=== PATIENT | male | born 1960 | race Caucasian/White ===

== ENCOUNTER 2021-01-15 15:23 | Outpatient (CLI) | payer OTHER ==
--- NOTE | 2021-01-16 09:34 | XRAY Report ---
PROCEDURE: Cervical Spine w/Flex/Ext INDICATIONS: CERVICALGIA TECHNIQUE: 6 views of the cervical spine were acquired. COMPARISON: None. FINDINGS: Bones: No fractures or dislocations to the C7-T1 level. No suspicious bony lesions. Straightening o f normal cervical lordosis is seen. Degenerative endplate changes are noted at C4-5, C5-6 and C6-7 le vels. There is slightly decreased range of motion between flexion and extension, with preserved cervi eliseo spine alignment. Soft tissues: Prevertebral soft tissues are normal in thickness. IMPRESSION: 1. Mild degenerative disc disease in mid to lower cervical spine. No acute fracture or dislocation. S lightly decreased range of motion on lateral flexion and extension views with preserved cervical spin e alignment. Reviewed by: Elkin Webster MD on 01/16/2021 9:33 AM PDT Approved by: Elkin Webster MD on 01/16/2021 9:33 AM PDT Station ID: [id number]
== END 2021-01-15 23:59 | disposition home or self-care (01) ==
LOC: DI.N 15:23
PROVIDERS: ATTEND Neurological Surgery
DX: Z01.818 Encounter for other preprocedural examination (principal); M50.321 Other cervical disc degeneration at C4-C5 level

== ENCOUNTER 2021-01-16 06:57 | Outpatient (CLI) | payer OTHER | END 2021-01-16 06:58 | disposition home or self-care (01) | LOC: LAB.N 06:57 | PROVIDERS: ATTEND Neurological Surgery | DX: Z01.812 Encounter for preprocedural laboratory examination (principal); Z53.9 Procedure and treatment not carried out, unspecified reason ==

== ENCOUNTER 2021-01-16 11:47 | Outpatient (CLI) | payer OTHER | END 2021-01-16 11:48 | disposition home or self-care (01) | LOC: LAB 11:47 | PROVIDERS: ATTEND Neurological Surgery | DX: Z01.812 Encounter for preprocedural laboratory examination (principal); Z20.822 Contact with and (suspected) exposure to COVID-19 ==

== ENCOUNTER 2021-10-07 09:41 | Outpatient (CLI) | payer OTHER | END 2021-10-07 09:42 | disposition home or self-care (01) | LOC: LAB 09:41 | PROVIDERS: ATTEND Ophthalmology | DX: Z01.812 Encounter for preprocedural laboratory examination (principal); H25.11 Age-related nuclear cataract, right eye; Z20.822 Contact with and (suspected) exposure to COVID-19 ==

== ENCOUNTER 2021-10-08 10:07 | Day surgery (SDC) | payer OTHER ==
[~2021-10-08 10:07] MED LIST: CYCLOPENTOLATE 1% OPHTH DROPS 2 ML ONE; KETOROLAC 0.45% OPHTH DROPS ONE; PHENYLEPHRINE 2.5% OPHTH 2 ML DROPS ONE; PROPARACAINE 0.5% OPHTH DROPS 15 ML ONE
[2021-10-08] MEDS ORDERED: LACTATED RINGERS 1,000 ML IV ONE (10:21)
--- NOTE | 2021-10-08 11:30 | ANESTHESIA ---
Pre-Anesthesia VS, & Labs - Diagnosis right eye cataract - Procedure right CATIOL Vital Signs: Temp Pulse Resp BP Pulse Ox 36.5 C 72 18 124/80 97 10/08/21 10:21 10/08/21 10:21 10/08/21 10:21 10/08/21 10:21 10/08/21 10:21 Height: 6 ft 2 in Weight (kg): 111 kg Body Mass Index: 31.4 BMI Classification: Obese - NPO >8 hours - Lab Results Lab results reviewed: Yes Home Medications and Allergies Home Medications: Ambulatory Orders Divalproex Sodium [Depakote ER] 1,500 mg PO DAILY 09/30/21 Gabapentin [Neurontin] 1,200 mg PO TID 09/30/21 Lisinopril [Zestril] 10 mg PO DAILY 09/30/21 Pantoprazole [Protonix] 40 mg PO DAILY 09/30/21 Prazosin HCl [Minipress] 5 mg PO DAILY 09/30/21 Trazodone HCl 300 mg PO DAILY 09/30/21 Venlafaxine ER [Effexor ER] 75 mg PO DAILY 09/30/21 buPROPion [Wellbutrin Xl] 150 mg PO DAILY 09/30/21 Divalproex Sodium [Depakote ER] 1,500 mg PO DAILY 09/30/21 Gabapentin [Neurontin] 1,200 mg PO TID 09/30/21 Lisinopril [Zestril] 10 mg PO DAILY 09/30/21 Pantoprazole [Protonix] 40 mg PO DAILY 09/30/21 Prazosin HCl [Minipress] 5 mg PO DAILY 09/30/21 Trazodone HCl 300 mg PO DAILY 09/30/21 Venlafaxine ER [Effexor ER] 75 mg PO DAILY 09/30/21 buPROPion [Wellbutrin Xl] 150 mg PO DAILY 09/30/21 Allergies/Adverse Reactions: Allergies Allergy/AdvReac Type Severity Reaction Status Date / Time morphine Allergy Itching Verified 09/30/21 10:20 Anes History & Medical History - Anesthetic History Anesthesia Complications: reports: No previous complications Family history of Anesthesia Complications: Denies Family history of Malignant Hyperthermia: Denies - Medical History Cardiovascular: reports: Hypertension Pulmonary: reports: Pneumonia Gastrointestinal: reports: GERD Urinary: reports: None Musculoskeletal: reports: Osteoarthritis, Fibromyalgia, Osteoporosis, Chronic back pain, Other (has had neck fusion within past year) Endocrine/Autoimmune: reports: None Skin: reports: None - Surgical History Eyes Ears Nose Throat (EENT): reports: Tonsil/Adenoidectomy Exam General: Alert, Oriented x3, Cooperative, No acute distress Dental: WNL Mouth Openin Fingerbreadth Neck Mobility: Reduced Mallampati classification: II Plan Anesthesia Type: MAC Consent for Procedure(s) Verified and Reviewed: Yes Code Status: Attempt Resuscitation ASA classification: 2-Mild systemic disease Is this case an emergency?: No
[2021-10-08] MEDS ORDERED: MIDAZOLAM 2 MG/2 ML VIAL ONE (12:24)
[2021-10-08] MEDS ORDERED: BSS/LIDOCAINE/EPINEPHRINE 1 ML SYRINGE IO ONE (12:27)
[2021-10-08] MEDS ORDERED: EPINEPHrine 1 MG/ML AMP IR ONE (12:27)
[2021-10-08] MEDS ORDERED: BRIMONIDINE 0.2% OPHTH DROPS 5 ML OPTH ONE (12:27)
[2021-10-08] MEDS ORDERED: TRIAMCIN/MOXIFLOX OPHTHALMIC 0.6 ML VIAL IO ONE ×2 (12:27→13:28)
[2021-10-08] MEDS ORDERED: TIMOLOL 0.5% OPHTH DROPS OPTH ONE (12:27)
[2021-10-08] MEDS ORDERED: VANCOMYCIN OPHTHALMI 8MG/0.8ML 8 MG/0.8 ML SYRINGE IO ONE (12:28)
[2021-10-08] MEDS ORDERED: PROPARACAINE 0.5% OPHTH DROPS 15 ML EACHEYE ONE (12:28)
[2021-10-08] MEDS ORDERED: fentaNYL 100 MCG/2 ML VIAL ONE (12:33)
[2021-10-08] MEDS ORDERED: LACTATED RINGERS 500 ML IV ONE (12:39)
--- NOTE | 2021-10-08 12:48 | OPERATIVE REPORT ---
Operative Report - Other Other Information/Narrative: Date of Surgery: 10/08/21 Preop Dx: Visually significant cataract right eye. This was the first cataract surgery. Postop Dx: Same Procedure: Phacoemulsification with posterior chamber intraocular lens implant right eye Surgeon: Dr. Aakash Carter Anesthesia: Monitored anesthesia care Complications: None Operative Indications: This is a 61-year-old M with progressive vision loss in the right eye due to 4+ nuclear sclerotic cataract. Best corrected visual acuity was 20/50 with glare to count fingers vision in the right eye. Indications for surgery were: - Overall decrease in vision - Difficulty seeing words on a computer screen - Difficulty reading - Difficulty seeing words, closed captions, or game scores on TV - Difficulty driving in low light or at night - Difficulty driving at night because of headlights from other vehicles - Difficulty with glare or bright lights in any situation - Difficulty tracking a golf ball The patient was consented at length concerning the risks and benefits of cataract surgery after which the patient expressed a desire to proceed with surgery. Operative Procedure: The patient was taken into OR#3 and placed under monitored anesthesia care. A surgical time-out was conducted confirming correct patient, correct procedure, and correct surgical site. The patient was given topical anesthesia and then prepped and draped in the usual sterile fashion. The eye was entered at the 6 and 3 oclock positions. Intracameral Shugarcaine was injected into the anterior chamber followed by a dispersive viscoelastic. A continuous-tear curvilinear capsulorhexis was performed. The nucleus was hydrodissected and phacoemulsified. The cortex was evacuated using automated infusion and aspiration. A cohesive viscoelastic was injected into the capsular bag and a 22.5 diopter intraocular lens was inserted into the bag. Infusion and aspiration were used to evacuate the viscoelastic materials from the eye. The wounds were hydrated and the eye inflated to physiologic pressure using balanced salt solution. Approximately 0.25ml of a mixture of triamcinolone and moxifloxacin was injected trans-sclerally into the vitreous in the inferotemporal quadrant using a 30 gauge cannula. An additional 0.55ml of a mixture of triamcinolone, moxifloxacin, and vancomycin was injected subconjunctivally in the superior quadrant for infection and inflammation prophylaxis. Wound integrity was checked with Weck-Cat sponges. The patient was taken from the operating room in good condition and given post-op instructions.
[2021-10-08 12:57] VITALS: BP 125/71
--- NOTE | 2021-10-08 13:13 | ANESTHESIA POST OP EVALUATION ---
Anesthesia Post Eval - Post Anesthesia Eval Vitals: Last Vital Signs Temp 36.7 C 10/08/21 12:56 Pulse 63 10/08/21 12:56 Resp 16 10/08/21 12:56 BP 125/71 10/08/21 12:56 Pulse Ox 97 10/08/21 12:56 CV Function Including HR & BP: Stable Pain Control: Satisfactory Nausea & Vomiting: Negative Mental Status: Baseline Respiratory Status: Airway Patent Hydration Status: Satisfactory Anesthesia Complications: None
== END 2021-10-08 10:08 | disposition home or self-care (01) ==
LOC: SDS 10:07
PROVIDERS: ATTEND Ophthalmology
DX: H25.11 Age-related nuclear cataract, right eye (principal); E66.9 Obesity, unspecified; Z68.31 Body mass index [BMI] 31.0-31.9, adult; Z87.891 Personal history of nicotine dependence
CPT/HCPCS: 66984; A9270; J3490; J7120

== ENCOUNTER 2021-11-18 11:20 | Outpatient (CLI) | payer OTHER | END 2021-11-18 11:21 | disposition home or self-care (01) | LOC: LAB 11:20 | PROVIDERS: ATTEND Ophthalmology | DX: Z01.812 Encounter for preprocedural laboratory examination (principal); H25.12 Age-related nuclear cataract, left eye; Z20.822 Contact with and (suspected) exposure to COVID-19 ==

== ENCOUNTER 2021-11-19 07:56 | Day surgery (SDC) | payer OTHER ==
[2021-11-19] MEDS ORDERED: LACTATED RINGERS 1,000 ML IV ONE (08:18)
--- NOTE | 2021-11-19 08:35 | ANESTHESIA ---
Pre-Anesthesia VS, & Labs - Diagnosis left eye cataract - Procedure left CATIOL Vital Signs: Temp Pulse Resp BP Pulse Ox 36.2 C L 69 18 144/77 H 96 11/19/21 08:08 11/19/21 08:08 11/19/21 08:08 11/19/21 08:08 11/19/21 08:08 Height: 6 ft 2 in Weight (kg): 112 kg Body Mass Index: 31.6 BMI Classification: Obese - NPO >8 hours - Lab Results Lab results reviewed: Yes Home Medications and Allergies Divalproex Sodium [Depakote ER] 1,500 mg PO DAILY 09/30/21 Gabapentin [Neurontin] 1,200 mg PO TID 09/30/21 Lisinopril [Zestril] 10 mg PO DAILY 09/30/21 Pantoprazole [Protonix] 40 mg PO DAILY 09/30/21 Prazosin HCl [Minipress] 5 mg PO DAILY 09/30/21 Trazodone HCl 300 mg PO DAILY 09/30/21 Venlafaxine ER [Effexor ER] 75 mg PO DAILY 09/30/21 buPROPion [Wellbutrin Xl] 150 mg PO DAILY 09/30/21 Allergies/Adverse Reactions: Allergies Allergy/AdvReac Type Severity Reaction Status Date / Time morphine Allergy Itching Verified 09/30/21 10:20 Anes History & Medical History - Anesthetic History Anesthesia Complications: reports: No previous complications Family history of Anesthesia Complications: Denies Family history of Malignant Hyperthermia: Denies - Medical History Cardiovascular: reports: Hypertension Pulmonary: reports: Pneumonia Gastrointestinal: reports: GERD Urinary: reports: None Musculoskeletal: reports: Osteoarthritis, Fibromyalgia, Osteoporosis, Chronic back pain, Other Endocrine/Autoimmune: reports: None Skin: reports: None Psychosocial: reports: Anxiety - Surgical History Eyes Ears Nose Throat (EENT): reports: Tonsil/Adenoidectomy Exam General: Alert, Oriented x3, Cooperative, No acute distress Dental: WNL Mouth Openin Fingerbreadth Neck Mobility: Normal Mallampati classification: II Respiratory: Lungs clear, Normal breath sounds, No respiratory distress, No accessory muscle use Plan Anesthesia Type: MAC Consent for Procedure(s) Verified and Reviewed: Yes Code Status: Attempt Resuscitation ASA classification: 2-Mild systemic disease Is this case an emergency?: No
[2021-11-19] MEDS ORDERED: TRIAMCIN/MOXIFLOX OPHTHALMIC 0.6 ML VIAL IO ONE ×3 (08:44→12:57)
[2021-11-19] MEDS ORDERED: MIDAZOLAM 2 MG/2 ML VIAL ONE (08:54)
[2021-11-19] MEDS ORDERED: EPINEPHrine 1 MG/ML AMP IR ONE (09:22)
[2021-11-19] MEDS ORDERED: BRIMONIDINE 0.2% OPHTH DROPS 5 ML OPTH ONE (09:22)
[2021-11-19] MEDS ORDERED: fentaNYL 100 MCG/2 ML VIAL ONE (09:22)
[2021-11-19] MEDS ORDERED: TIMOLOL 0.5% OPHTH DROPS OPTH ONE (09:23)
[2021-11-19] MEDS ORDERED: BSS/LIDOCAINE/EPINEPHRINE 1 ML SYRINGE IO ONE (09:23)
[2021-11-19] MEDS ORDERED: PROPARACAINE 0.5% OPHTH DROPS 15 ML EACHEYE ONE (09:23)
[2021-11-19] MEDS ORDERED: VANCOMYCIN OPHTHALMI 8MG/0.8ML 8 MG/0.8 ML SYRINGE IO ONE (09:24)
[2021-11-19] MEDS ORDERED: LACTATED RINGERS 700 ML IV ONE (09:34)
--- NOTE | 2021-11-19 09:34 | OPERATIVE REPORT ---
Operative Report - Other Other Information/Narrative: Date of Surgery: 11/19/21 Preop Dx: Visually significant cataract left eye. Cataract surgery was performed in the right eye on . Postop Dx: Same Procedure: Phacoemulsification with posterior chamber intraocular lens implant left eye Surgeon: Dr. Aakash Carter Anesthesia: Monitored anesthesia care Complications: None Operative Indications: This is a 61-year-old M with progressive vision loss in the left eye due to 3+ nuclear sclerotic cataract. Best corrected visual acuity was 20/20 with glare to 20/25 vision in the left eye. Indications for surgery were: - Overall decrease in vision - Difficulty seeing words on a computer screen - Difficulty reading - Difficulty seeing words, closed captions, or game scores on TV - Difficulty seeing street signs - Difficulty driving in low light or at night - Difficulty driving at night because of headlights from other vehicles - Difficulty with glare or bright lights in any situation - Difficulty tracking a golf ball The patient was consented at length concerning the risks and benefits of cataract surgery after which the patient expressed a desire to proceed with surgery. Operative Procedure: The patient was taken into OR#3 and placed under monitored anesthesia care. A surgical time-out was conducted confirming correct patient, correct procedure, and correct surgical site. The patient was given topical anesthesia and then prepped and draped in the usual sterile fashion. The eye was entered at the 6 and 3 oclock positions. Intracameral Shugarcaine was injected into the anterior chamber followed by a dispersive viscoelastic. A continuous-tear curvilinear capsulorhexis was performed. The nucleus was hydrodissected and phacoemulsified. The cortex was evacuated using automated infusion and aspiration. A cohesive viscoelastic was injected into the capsular bag and a 21.5 diopter intraocular lens was inserted into the bag. Infusion and aspiration were used to evacuate the viscoelastic materials from the eye. The wounds were hydrated and the eye inflated to physiologic pressure using balanced salt solution. Approximately 0.25ml of a mixture of triamcinolone and moxifloxacin was injected trans-sclerally into the vitreous in the inferotemporal quadrant using a 30 gauge cannula. An additional 0.55ml of a mixture of triamcinolone, moxifloxacin, and vancomycin was injected subconjunctivally in the superior quadrant for infection and inflammation prophylaxis. Wound integrity was checked with Weck-Cat sponges. The patient was taken from the operating room in good condition and given post-op instructions.
[2021-11-19 09:39] VITALS: BP 125/71
--- NOTE | 2021-11-19 10:01 | ANESTHESIA POST OP EVALUATION ---
Anesthesia Post Eval - Post Anesthesia Eval Vitals: Last Vital Signs Temp 36.7 C 11/19/21 09:34 Pulse 68 11/19/21 09:34 Resp 16 11/19/21 09:34 BP 125/71 11/19/21 09:34 Pulse Ox 96 11/19/21 09:34 CV Function Including HR & BP: Stable Pain Control: Satisfactory Nausea & Vomiting: Negative Mental Status: Baseline Respiratory Status: Airway Patent Hydration Status: Satisfactory Anesthesia Complications: None
[2021-11-19] MEDS ORDERED: TIMOLOL 0.5% OPHTH DROPS ONE (12:57)
[2021-11-19] MEDS ORDERED: EPINEPHrine 1 MG/ML AMP ONE (12:57)
[2021-11-19] MEDS ORDERED: BRIMONIDINE 0.2% OPHTH DROPS 5 ML ONE (12:57)
[2021-11-19] MEDS ORDERED: BSS/LIDOCAINE/EPINEPHRINE 1 ML VIAL ONE (12:57)
== END 2021-11-19 07:57 | disposition home or self-care (01) ==
LOC: SDS 07:56
PROVIDERS: ATTEND Ophthalmology
DX: H25.12 Age-related nuclear cataract, left eye (principal); E66.9 Obesity, unspecified; Z68.31 Body mass index [BMI] 31.0-31.9, adult; F41.9 Anxiety disorder, unspecified; Z98.41 Cataract extraction status, right eye; F43.10 Post-traumatic stress disorder, unspecified
CPT/HCPCS: 66984; A9270; J3490; J7120

== ENCOUNTER 2023-01-05 17:09 | Outpatient (CLI) | payer OTHER | END 2023-01-05 23:59 | disposition left against medical advice (07) | LOC: EMS 17:09 | DX: S09.90XA Unspecified injury of head, initial encounter (principal); W01.0XXA Fall on same level from slipping, tripping and stumbling without subsequent striking against object, initial encounter; Y92.512 Supermarket, store or market as the place of occurrence of the external cause ==